=== PATIENT | female | born 1990 | race Caucasian/White ===

== ENCOUNTER 2021-08-08 21:51 | Emergency (ER) | payer OTHER ==
[~2021-08-08] VITALS: Ht 165.1 cm; Wt 67.6 kg
[2021-08-08 22:22] VITALS: BP 133/74
--- NOTE | 2021-08-08 22:27 | NUR ---
PT TAKEN TO BED 08. PT STATES SHE DOES NOT HAVE TO URINATE AT THIS TIME. PT HAS WATER.
[2021-08-08] MEDS ORDERED: MORPHINE SULFATE 2 MG/ML SYR IVP ONE (22:45)
[2021-08-08] MEDS ORDERED: PANTOPRAZOLE 40 MG INJ VIAL IVP ONE (22:45)
[2021-08-08] MEDS ORDERED: ALUMINUM HYD/MAG/SIMETHICONE 30 ML, DICYCLOMINE HCL LIQUID 20 MG, LIDOCAINE VISCOUS 2% ... PO ONE ×3 (22:45)
[2021-08-08] MEDS ORDERED: ONDANSETRON 4 MG/2 ML VIAL IVP ONE (22:45)
[2021-08-08] MEDS ORDERED: NACL 0.9% 1,000 ML IV SCH (22:45)
[2021-08-08 23:03] LABS: BASOPHILS % (AUTO) 0.3 % (0.0-2.0); EOSINOPHILS # (AUTO) 0.2 K/uL (0-0.4); EOSINOPHILS % (AUTO) 2.4 % (0.0-4.0); HEMATOCRIT 42.7 % (36-48); HEMOGLOBIN 14.4 g/dL (12.0-16.0); LYMPHOCYTES # (AUTO) 1.5 K/uL (2.5-16.5); LYMPHOCYTES % (AUTO) 16.6 % (20.5-51.1); MEAN CORPUSCULAR HEMOGLOBIN 30 pg (27-31); MEAN CORPUSCULAR HGB CONC 34 g/dL (33-37); MEAN CORPUSCULAR VOLUME 87.3 fL (80-94); MONOCYTES # (AUTO) 0.4 K/uL (0.8-1.0); MONOCYTES % (AUTO) 4.2 % (1.7-9.3); NEUTROPHILS # (AUTO) 6.8 K/uL (1.8-7.7); NEUTROPHILS % (AUTO) 76.5 % (42.2-75.2); PLATELET COUNT (AUTO) 317 K/uL (140-450); RED BLOOD CELL COUNT(AUTO) 4.89 MIL/uL (4.20-5.40); RED CELL DISTRIBUTION WIDTH 12.9 % (11.6-13.7); WHITE BLOOD COUNT (AUTO) 8.8 K/uL (4.8-10.8)
[2021-08-08 23:03] LABS: APPEARANCE,URINE CLEAR (CLEAR); BILIRUBIN,URINE NEGATIVE (NEGATIVE); BLOOD, URINE 2+ (NEGATIVE); COLOR,URINE YELLOW (YELLOW); LEUKOCYTE ESTERASE ,URINE TRACE (NEGATIVE); NITRITE, URINE NEGATIVE (NEGATIVE); PH,URINE 6.5 (5.0-9.0); UGLUCOSE NEGATIVE (NEGATIVE)
--- NOTE | 2021-08-08 23:16 | NUR ---
31 YO/F BIB SELF W C/O EPIGASTRIC PAIN 6/10 SHARP/BURNING, NON-RAD, + NAUSEA X4 DAYS. PT DENIES ANY CHEST PAIN, SOB, FEVVERS/CHILLS, N/V/D/C, OR URINARY SYMPTOMS. PT DENIES FEELING NAUSEUS AT THIS TIME. PT LAYING IN BED LOCKED IN LOWEST POSITION W X1 SIDERAIL UP. BREATHING EVEN AND UNLABORED. NAD NOTED, WILL CONTINUE TO MONITOR. PMH:DENIES ALLERGIES: DENIES
[2021-08-08] MEDS ORDERED: ALUMINUM HYD/MAG/SIMETHICONE 30 ML UDC ONE (23:17)
[2021-08-08] MEDS ORDERED: DICYCLOMINE HCL LIQUID 10 MG/5 ML UDC ONE (23:17)
[2021-08-08 23:23] LABS: ALBUMIN 4.3 g/dL (3.4-5.0); ANION GAP 9.9 (8-16); CARBON DIOXIDE 32.5 mmol/L (21-32); CREATININE 0.7 mg/dL (0.6-1.3); POTASSIUM 3.4 mmol/L (3.5-5.1); TOTAL BILIRUBIN 0.4 mg/dL (0.0-1.0)
--- NOTE | 2021-08-08 23:35 | NUR ---
PT DENIES NAUSEA AT THIS TIME, PT REPORTS PAIN IS OK AT THIS TIME. PT REFUSING ZOFRAN AND MORPHINE AT THIS TIME.
[2021-08-08 23:38] LABS: RBC,URINE 0-5 /HPF (0-5)
[2021-08-09] MEDS ORDERED: cefTRIAXone 1,000 MG VIAL ONE (00:17)
--- NOTE | 2021-08-09 00:21 | NUR ---
SPOKE W PT ABOUT ADMIN OF ROCEPHIN ABX ORDERED BY ERMWilfred FOR UTI. PER PT PT HAS HAD 6 RECENT UTIs, WOULD LIKE TO SPEAK W ERMD PRIOR TO ABX ADMIN,. ABX HELD. ERMD MADE AWARE. ERMD TO SEE PT.
[2021-08-09] MEDS ORDERED: PANT40EC PO (00:30)
[2021-08-09] MEDS ORDERED: CEPH500T PO (00:30)
--- NOTE | 2021-08-09 00:58 | NUR ---
BO AT BEDSIDE SPEAKING W PT.
--- NOTE | 2021-08-09 01:00 | NUR ---
PT REFUSED ROCEPHIN IV. PT WILL TAKE PRESCRIPTION PO KEFLEX. ERMD AWARE.
[2021-08-09 01:11] VITALS: BP 119/74
--- NOTE | 2021-08-09 01:11 | NUR ---
Patient discharged with v/s stable. Written and verbal after care instructions given and explained. Patient alert, oriented and verbalized understanding of instructions. Ambulatory with steady gait. All questions addressed prior to discharge. ID band removed. Patient advised to follow up with PMD. Rx of PROTONIX, KEFLEX given. Patient educated on indication of medication including possible reaction and side effects. Opportunity to ask questions provided and answered.
== END 2021-08-09 01:11 | disposition home or self-care (01) ==
LOC: MED 21:51
DX: N39.0 Urinary tract infection, site not specified (principal); Z79.899 Other long term (current) drug therapy; Z79.2 Long term (current) use of antibiotics
CPT/HCPCS: 36415; 76705; 80053; 81001; 81025; 83690; 84703; 85025; 87086; 96361; 96374; 99284; C9113; Q0092; J0696; J2270; J2405

== ENCOUNTER 2021-08-16 14:35 | Emergency (ER) | payer OTHER ==
[~2021-08-16] VITALS: Ht 165.1 cm; Wt 66.7 kg
[~2021-08-16 14:35] MED LIST: CEPH500T PO; PANT40EC PO
[2021-08-16 14:50] VITALS: BP 132/84
--- NOTE | 2021-08-16 14:56 | NUR ---
PT AMB TO BED 8.
[2021-08-16] MEDS ORDERED: KETOROLAC 60 MG/2 ML VIAL IM ONE (15:10)
[2021-08-16] MEDS ORDERED: ONDANSETRON 4 MG ODT PO ONE (15:10)
--- NOTE | 2021-08-16 15:45 | NUR ---
31/F BIB SELF WITH C/O 10/10 EPIGASTRIC PAIN X1 WEEK. PATIENT REPORTS NAUSEA, DENIES V/D, FEVER, CHILLS OR URINARY SYMPTOMS. STATES SHE HAS TAKEN TYLENOL, PEPTO, WILLIAMS SELTZER AND PROTONIX WITH NO RELIEF. PATIENT STATES SHE WAS SEEN HERE PREVIOUSLY FOR SAME SYMPTOMS BUT RECEIVED ALL NEGATIVE TESTS AND WAS D/C HOME.
[2021-08-16] MEDS ORDERED: IBUP-2213 PO (16:04)
[2021-08-16] MEDS ORDERED: ONDA8TAB87 PO (16:04)
[2021-08-16] MEDS ORDERED: ACET-8386 PO (16:04)
[2021-08-16 16:20] VITALS: BP 132/84
--- NOTE | 2021-08-16 16:20 | NUR ---
Patient discharged with v/s stable. Written and verbal after care instructions ABOUT NAUSEA AND ABDOMINAL PAIN given and explained. Patient alert, oriented and verbalized understanding of instructions. Ambulatory with steady gait. All questions addressed prior to discharge. ID band removed. Patient advised to follow up with PMD. Rx of HYDROCODON-ACETAMINOPHEN, IBUPROFEN, AND ZOFRAN given.
== END 2021-08-16 16:20 | disposition home or self-care (01) ==
LOC: MED 14:35
DX: R10.13 Epigastric pain (principal); R11.0 Nausea; Z79.899 Other long term (current) drug therapy
CPT/HCPCS: 81002; 81025; 96372; 99283; J1885; Q0162